=== PATIENT | female | born 1940 | race Caucasian/White ===

== ENCOUNTER 2023-07-26 14:35 | Emergency (ER) | payer OTHER, MEDICAID ==
[~2023-07-26] VITALS: Ht 144.8 cm; Wt 61.2 kg
[2023-07-26 15:10] VITALS: BP_SYST 126; PULSE 70; RESP 18; TEMP 96.9; O2SAT 99
[2023-07-26] MEDS ORDERED: NACL 0.9% 1,000 ML IV ONE (16:30)
[2023-07-26 17:11] VITALS: BP_SYST 126; PULSE 70; RESP 18; TEMP 96.9; O2SAT 99
== END 2023-07-26 17:11 | disposition home or self-care (01) ==
LOC: SED 14:35
DX: S80.11XA Contusion of right lower leg, initial encounter (principal); I11.0 Hypertensive heart disease with heart failure; I50.9 Heart failure, unspecified; E11.9 Type 2 diabetes mellitus without complications; Z79.899 Other long term (current) drug therapy; W22.8XXA Striking against or struck by other objects, initial encounter; Y93.89 Activity, other specified; Y92.89 Other specified places as the place of occurrence of the external cause; Y99.8 Other external cause status
CPT/HCPCS: 73590-TC; 99283